=== PATIENT | male | born 1990 | race Caucasian/White ===

== ENCOUNTER 2017-10-31 21:08 | Emergency (ER) | payer OTHER ==
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
[2017-10-31 21:46] VITALS: BP 149/111; PULSE 90; TEMP 98.4; BMI 54.1
[2017-10-31] MEDS ORDERED: KETOROLAC TROMETHAMINE 60 MG/2 ML VIAL ONE (21:53)
[2017-10-31] MEDS ORDERED: KETOROLAC TROMETHAMINE 60 MG/2 ML VIAL IM ONE (22:00)
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
== END 2017-10-31 22:56 | disposition home or self-care (01) ==
LOC: JERFT 21:08
PROC: 3E0233Z Introduction of Anti-inflammatory into Muscle, Percutaneous Approach (ICD-10-PCS; principal; 2017-10-31)
DX: M54.5 Low back pain (principal); M25.511 Pain in right shoulder; V43.52XA Car driver injured in collision with other type car in traffic accident, initial encounter; Y93.89 Activity, other specified; Y92.410 Unspecified street and highway as the place of occurrence of the external cause
CPT/HCPCS: 99281-25

== ENCOUNTER 2017-11-02 15:22 | Emergency (ER) | payer OTHER ==
[2017-11-02 15:38] VITALS: BP 115/66; PULSE 66; TEMP 97.8; BMI 54.1
--- NOTE | 2017-11-02 16:00 | PDOC ---
History of Present Illness - General Chief Complaint: Back Pain Stated Complaint: BACK PAIN Time Seen by Provider: 11/02/17 15:33 - History of Present Illness Initial Comments: 1-year-old male presents for evaluation of lower back pain with mild right sided posterior lateral leg radiculopathy. He denies loss of bowel or bladder function no other associated symptoms besides back pain and right-sided leg radiculopathy to just above his knee. 11/02/17 15:56 Past History - Past Medical History Allergies/Adverse Reactions: Allergies Allergy/AdvReac Type Severity Reaction Status Date / Time No Known Allergies Allergy Verified 11/02/17 15:27 Home Medications: Ambulatory Orders Cyclobenzaprine HCl [Flexeril 10 mg] 10 mg PO HS PRN #10 tablet 11/02/17 Ibuprofen [Motrin -] 600 mg PO TID #30 tablet 11/02/17 COPD: No - Suicide/Smoking/Psychosocial Hx Smoking History: Never smoked Have you smoked in the past 12 months: No Information on smoking cessation initiated: No Hx Alcohol Use: No Drug/Substance Use Hx: No Substance Use Type: None Review of Systems - Review of Systems Musculoskeletal: Yes: Back Pain All Other Systems: Reviewed and Negative *Physical Exam - Vital Signs Last Vital Signs Temp Pulse Resp BP Pulse Ox 97.8 F 66 18 115/66 100 11/02/17 15:28 11/02/17 15:28 11/02/17 15:28 11/02/17 15:28 11/02/17 15:28 - Physical Exam Comments: Lumbar spine skin color and temperature are normal. There is decreased nonpainful range of motion. 5 out of 5 strength in bilateral lower extremities. Patella and Achilles reflexes are 2+ and symmetric bilaterally. There is no clonus. Straight leg raise test is negative bilaterally. Thighs and calves are soft and nontender. There are no gross sensory motor deficits. Neurovascularly intact. 11/02/17 15:56 Medical Decision Making - Medical Decision Making This 27-year-old male with lumbar spine strain mild right sided radiculopathy without focal deficits. He has not followed up with orthopedist. I'll call him and some Motrin and Flexeril and advised him again to go see an orthopedic surgery for follow-up 11/02/17 15:57 *DC/Admit/Observation/Transfer Diagnosis at time of Disposition: Lumbar strain, Lumbar radicular pain - Discharge Dispostion Disposition: HOME Condition at time of disposition: Stable Decision to Admit order: No - Referrals Referrals: Saad Rivera MD [Staff Physician] - - Patient Instructions - Post Discharge Activity
== END 2017-11-02 16:06 | disposition home or self-care (01) ==
LOC: JERFT 15:22
DX: M54.16 Radiculopathy, lumbar region (principal); S39.012A Strain of muscle, fascia and tendon of lower back, initial encounter; X58.XXXA Exposure to other specified factors, initial encounter; Y93.9 Activity, unspecified; Y92.89 Other specified places as the place of occurrence of the external cause; Y99.8 Other external cause status
CPT/HCPCS: 99281-25